=== PATIENT | female | born 1960 | race Caucasian/White ===

== ENCOUNTER 2020-06-19 14:44 | Emergency (ER) | payer OTHER ==
[~2020-06-19] VITALS: Ht 165.1 cm; Wt 69.8 kg
[2020-06-19] MEDS ORDERED: TRIDERM28.4 GM TOP (16:25)
[2020-06-19] MEDS ORDERED: ATHLETE'S FOO35.4 GM TOP (16:25)
[2020-06-21] MEDS ORDERED: ATHLETE'S FOO35.4 GM TOP (16:23)
== END 2020-06-19 16:37 | disposition home or self-care (01) ==
LOC: ER 14:44
DX: B35.3 Tinea pedis (principal); F17.210 Nicotine dependence, cigarettes, uncomplicated
CPT/HCPCS: 99282

== ENCOUNTER 2022-12-22 11:10 | Emergency (ER) | payer OTHER ==
[~2022-12-22] VITALS: Ht 165.1 cm; Wt 68.0 kg
[~2022-12-22 11:10] MED LIST: ATHLETE'S FOO35.4 GM TOP; TRIDERM28.4 GM TOP
[2022-12-22 11:26] VITALS: BP 147/97
[2022-12-22 11:49] LABS: Source, Urine Clean Catch
[2022-12-22 12:00] LABS: Appearance, Urine Hazy (Clear); Bilirubin, Urine Neg (Neg); Blood, Urine 2+ (Neg); Color, Urine Yellow (P-Yellow); Glucose Qualitative, Urine Neg (Neg); Ketones, Urine Neg (Neg); Leukocyte Esterase, Urine 3+ (Neg); Nitrite, Urine Neg (Neg); Protein, Urine Neg (Neg); Urobilinogen, Urine NORM (Normal)
[2022-12-22 12:09] LABS: Amorphous Mod (0-Heavy); Bacteria Mod /hpf; Mucus Light (0-Heavy); Red Blood Cells, Urine 25-50 /hpf (0-2); Squamous Epithelial Cells Mod /hpf (Few); Transitional Epithelial Cells Few /hpf (0-Rare); White Blood Cells, Urine 25-50 /hpf (0-5)
[2022-12-22] MEDS ORDERED: Flagyl500 MG PO (12:23)
== END 2022-12-22 12:33 | disposition home or self-care (01) ==
LOC: ER 11:10
PROVIDERS: Physician Assistant
DX: N76.0 Acute vaginitis (principal); Z88.8 Allergy status to other drugs, medicaments and biological substances; Z79.899 Other long term (current) drug therapy; F17.200 Nicotine dependence, unspecified, uncomplicated
CPT/HCPCS: 81001; 87086; 99283

== ENCOUNTER 2023-03-07 16:34 | Emergency (ER) | payer OTHER ==
[~2023-03-07] VITALS: Ht 165.1 cm; Wt 68.0 kg
[~2023-03-07 16:34] MED LIST changes: +Flagyl500 MG PO
[2023-03-07 16:42] VITALS: BP 183/99
[2023-03-07 18:36] LABS: Source, Urine Clean Catch
[2023-03-07 18:41] LABS: Appearance, Urine Clear (Clear); Bilirubin, Urine Neg (Neg); Blood, Urine Neg (Neg); Color, Urine Yellow (P-Yellow); Glucose Qualitative, Urine Neg (Neg); Ketones, Urine Neg (Neg); Leukocyte Esterase, Urine 3+ (Neg); Nitrite, Urine Neg (Neg); Protein, Urine Neg (Neg); Specific Gravity, Urine 1.005 (1.003-1.022); Urobilinogen, Urine NORM (Normal); pH, Urine 6.5 (5.0-8.0)
[2023-03-07 19:00] LABS: Bacteria Few /hpf; Red Blood Cells, Urine 0-2 /hpf (0-2); Squamous Epithelial Cells Few /hpf (Few)
[2023-03-07 19:47] LABS: Candida species (DNA Probe) Negative (NEGATIVE); G. vaginalis (DNA Probe) Negative (NEGATIVE); T. vaginalis (DNA Probe) Positive (NEGATIVE)
[2023-03-07] MEDS ORDERED: METR500 PO (20:36)
[2023-03-09 02:08] LABS: CHLAMYDIA TRACHOMATIS, NAA Negative (Negative)
== END 2023-03-07 21:11 | disposition home or self-care (01) ==
LOC: ER 16:34
PROVIDERS: Student in an Organized Health Care Education/Training Program
DX: A59.01 Trichomonal vulvovaginitis (principal); F17.200 Nicotine dependence, unspecified, uncomplicated; Z88.8 Allergy status to other drugs, medicaments and biological substances
CPT/HCPCS: 81001; 87086; 87480; 87491; 87510; 87591; 87660; 99283; A9270